=== PATIENT | female | born 1950 | race Caucasian/White ===

== ENCOUNTER 2019-05-08 10:08 | Outpatient (CLI) | payer MEDICARE | END 2019-05-08 10:09 | disposition home or self-care (01) | LOC: SC 10:08 | PROVIDERS: ATTEND Internal Medicine Pulmonary Disease | DX: G47.33 Obstructive sleep apnea (adult) (pediatric) (principal) | CPT/HCPCS: 99203; G0463; 99212 ==

== ENCOUNTER 2019-06-03 19:26 | Outpatient (CLI) | payer MEDICARE | END 2019-06-03 19:27 | disposition home or self-care (01) | LOC: SC 19:26 | PROVIDERS: ATTEND Internal Medicine Pulmonary Disease | DX: G47.33 Obstructive sleep apnea (adult) (pediatric) (principal) | CPT/HCPCS: 95810 ==

== ENCOUNTER 2019-06-21 10:04 | Outpatient (CLI) | payer MEDICARE ==
[2019-06-21 11:24] VITALS: BP 118/60
--- NOTE | 2019-06-21 11:24 | SLEEP CARE CONSULTATION ---
Information from patient questionnaire entered by Diana Tyler. I have reviewed and concur with the information entered by Diana Tyler. This document represents the service I personally performed and the decisions made by me, Laquita Ortiz RN, MSN, FIELD GEOLOGIST. - History of Present Illness 1. HENNA CARTER returns for follow up of the recently performed polysomnography. The patient was informed of the following polysomnography findings. The quality of the study is good. The patient had reduced sleep efficiency due to sleep onset insomnia and a prolonged awakening in the middle of the night. Despite moderate sleep fragmentation, the sleep architecture was relatively normal. Respiratory monitoring showed moderate obstructive sleep apnea-hypopnea (AHI = 15.9) associated with frequent arousals, oxyhemoglobin desaturation and moderate hypoxia (vida oxygen saturation of 70%). Baseline oxygen saturation was low normal at 91%. The respiratory events occurred mainly during REM sleep. The patient only slept supine during this study (supine AHI = 15.9; non-supine = 0.00). Snore was light to moderate in intensity. There was no significant periodic leg movement of sleep. Cardiac rhythm was normal sinus rhythm without significant arrhythmia. No abnormal behavior (parasomnia) observed during the night I explained the pathophysiology behind obstructive sleep apnea. We then spent quite a bit of time discussing different treatment options. For mild obstructive sleep apnea, surgery and oral appliance are alternatives to nasal CPAP therapy but in moderate or severe cases, nasal CPAP is the most effective and reliable treatment. I reviewed the impact of weight changes on sleep apnea and strongly recommended losing weight. I answered questions about CPAP equipment and masks as well. 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 I also advised her to discuss with her PCP and emphasized need of treatment due to hypoxia with rationale discussed. Patient counseled not drink alcohol less than 4 hours before bedtime as it can increase snoring and apnea. Patient does not drink alcohol. Patient was cautioned about risks of drowsy driving until sleepiness symptoms resolve. Patient denies drowsy driving. AAS patient education on snoring and sleep apnea given and reviewed. Initial [place] Sleepiness Scale score: 4 Current [place] Sleepiness Scale score: 5 - Allergies/Medications Medication List Medication Name (generic/name brand) Strength & Dosage Lisinopril 20mg tab one daily Amlodipine Besylate 10mg tab one daily Morphine Sulfate ER 15mg tab one every 12 hours Cymbalta (Duloxetine HCI) 60mg cap one daily Ipratropium-Albuterol 0.5-2.5 mg/3ml One vial via nebulizer four times daily Advair HFA 230-21 mcg/act Two puffs twice daily Albuterol Sulfate 0.083% Solution One vial [id number] as needed for asthma Gabapentin 400mg cap 3 three times daily Atorvastatin Calcium 40mg tab one daily ProAir HFA 108 (90 base) mcg/act Two puffs [id number] as needed Rabeprazole Sodium 20mg tab one daily as needed Senna 8.6mg tab one twice daily before meals Polyethylene Glycol Powder 1450 One packet diluted daily as needed Docusate Sodium 250mg cap one twice daily Sofy Allergy 180mg tab one daily Allergy List Aspirin Ibuprofen Cephalexin No known drug allergies: Yes (aspirin is an allergy but has been desensitized, uses bid. ibuprofen, cepha) Allergies and home medications reviewed: Yes - Review of Systems Review of systems same as previous: Yes Cardiovascular: reports: high blood pressure, leg or foot swelling, have to sleep sitting up Respiratory: reports: shortness of breath, wheeze Gastrointestinal: reports: heartburn, difficulty swallowing Neurological: reports: head trauma Psychiatric: reports: anxiety, claustrophobia Ear/Nose/Throat: reports: nasal congestion, sinus problems, dry mouth/throat, tonsillectomy, wisdom teeth removed Endocrine: reports: too hot or cold Musculoskeletal: reports: joint pain, neck pain, back pain, joint swelling, muscle pain or cramping Immunologic: reports: sneezing, allergies to food or environment - Physical Exam Blood Pressure: 118/60 Cuff size: long Heart Rate: 86 O2 Saturation: 97 Height: 5 ft 4.5 in Weight (kg): 83.28 kg Body Mass Index: 31.0 BMI Classification: Class 1 - Impression 1. Obstructive Sleep Apnea-Hypopnea Syndrome, moderate, with lowest oxygen saturation of 70%. Obviously this is the cause of the patients symptoms of unrefreshed sleep, and fatigue. Positive pressure therapy could benefit her hypertension and COPD. She voiced concern about starting CPAP due clautrophobia with mask last CPAP use in 2011, past sinus surgery at which is well controlled now and worries about the germs that may be more prevelant with use of CPAP / humidifier. I showed her a NIH study completed in 2016 that showed no significant increase in respiratory infections with use of CPAP with or without humidifier. I also discussed improvement of equipment both in CPAP device and mask interfaces. 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 I also advised her to discuss with her PCP. With moderate hypoxia, I emphasized need for treatment. Due to her past difficulty with CPAP, a titration study may be b est implementation if she chose to use. She will contact this office with choice of treatment. I advised her to contact office within a month and discussed how most insurances want implementation of treatment within 6 months of diagnosis. - Plan * Contact this office with choice of care after discussing treatment options with her various specialists and PCP. * If choses to start CPAP - schedule manual titration study * Attempt to lose weight. * Avoid alcohol consumption near bedtime. * The patient is again cautioned about driving until sleepiness completely resolves. Addendum: 06/26/19I conferred with Dr. Urbano due to patient wanting to go back on oxygen only and wanting to speak with her providers as noted above. He agreed with current study findings that CPAP is best method of treatment.
== END 2019-06-21 10:05 | disposition home or self-care (01) ==
LOC: SC 10:04
PROVIDERS: ATTEND Nurse Practitioner Family
DX: G47.33 Obstructive sleep apnea (adult) (pediatric) (principal); R09.02 Hypoxemia
CPT/HCPCS: 99215; G0463; 99212

== ENCOUNTER 2019-08-19 20:13 | Outpatient (CLI) | payer MEDICARE | END 2019-08-19 20:14 | disposition home or self-care (01) | LOC: SC 20:13 | PROVIDERS: ATTEND Internal Medicine Pulmonary Disease | DX: G47.33 Obstructive sleep apnea (adult) (pediatric) (principal) | CPT/HCPCS: 95811 ==

== ENCOUNTER 2019-09-26 13:47 | Outpatient (CLI) | payer MEDICARE ==
--- NOTE | 2019-09-26 15:18 | SLEEP CARE CONSULTATION ---
Information from patient questionnaire entered by Arlene Peguero. I have reviewed and concur with the information entered by Arlene Peguero. This document represents the service I personally performed and the decisions made by me, Scooter Urbano MD, [facility]. History of Present Illness Initial [place] Sleepiness Scale score: 4 Current [place] Sleepiness Scale score: 4 Additional HPI information: HPI: Ms. Baca returns for follow up of the sleep study (a manual CPAP titration study) she had on 08/19/19. The study showed that CPAP was initiated at 4 cmH2O and titrated up to CPAP at 9 cmH2O. CPAP at 8 cmH2O appeared to be optimal (AHI of 1.5 per hour on the pressure). There was supine REM sleep on the pressure. Oxygen saturation was minimally low. Lower CPAP settings appeared adequate as well. The patient tolerated positive airway pressure therapy very well. The patients sleep efficiency was normal. The sleep architecture was relatively normal considering the first-night effect. There was no significant periodic leg movement of sleep. Cardiac rhythm was normal sinus rhythm without significant arrhythmia. No abnormal behavior (parasomnia) observed during the night. The patient was informed of these findings. The patient tried CPAP 10 years ago but could not tolerate. She said this time she felt significantly better after just one night of using CPAP here. Allergies and Home Medications Drug allergies reviewed: Yes Home medication list reviewed: Yes Physical Exam Weight: 180 lb Impression and Plan IMPRESSION: 1. Obstructive Sleep Apnea-Hypopnea Syndrome, moderate, adequately controlled with CPAP of 8 cmH2O. Based on the titration study, I will prescribe her an autoCPAP set between 5 9 cmH2O. I anticipate good treatment compliance this time around. PLAN: 1. Prescription made for an autoCPAP, heated humidifier, and related supplies. 2. Attempt to lose weight. 3. Return for follow up after one month on the new machine. I spent 100% of this 20 minute visit face to face with the patient with greater than 50% of this was spent time counseling the patient and coordination of care.
== END 2019-09-26 13:48 | disposition home or self-care (01) ==
LOC: SC 13:47
PROVIDERS: ATTEND Internal Medicine Pulmonary Disease
DX: G47.33 Obstructive sleep apnea (adult) (pediatric) (principal)
CPT/HCPCS: 99213; G0463; 99212

== ENCOUNTER 2020-01-09 10:31 | Outpatient (CLI) | payer MEDICARE ==
--- NOTE | 2020-01-09 13:28 | SLEEP CARE CONSULTATION ---
Information from patient questionnaire entered by Arlene Peguero. I have reviewed and concur with the information entered by Arlene Peguero. This document represents the service I personally performed and the decisions made by me, Scooter Urbano MD, [facility]. History of Present Illness Previous diagnosis: Moderate, Obstructive Sleep Apnea-Hypopnea Syndrome AHI: 15.9 Reason for follow up: three month (for alternative treatment option) Prior sleep studies: Yes HPI additional information: HPI: Ms. Baca returned today for follow up of nasal CPAP therapy. She was diagnosed to have moderate obstructive sleep apnea-hypopnea syndrome (AHI was 15.6). The patient was prescribed a CPAP which she tried to use for a little bit. She says she has a lung disorder where her air sacs would collapse and she thinks the CPAP will make it worse. 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 She has since returned the device to the durable medical supplier. In the past she has looked into the oral appliance therapy with Dr. Rodriguez. She normally sleeps partially sitting up at home. She has lost some weight. Subjective Initial [place] Sleepiness Scale score: 4 Current [place] Sleepiness Scale score: 3 Allergies and Home Medications Drug allergies reviewed: Yes Home medication list reviewed: Yes Review of Systems Review of systems same as previous: Yes Physical Exam Height: 5 ft 4.5 in Weight: 175 lb Body Mass Index: 29.5 BMI Classification: Overweight Impression and Plan IMPRESSION: 1. Obstructive Sleep Apnea-Hypopnea Syndrome, moderate, with the patient choosing not to use CPAP. Despite my reassurance that CPAP has never infected anybody nor cause any harm, she still does not want to use it. Oral appliance therapy would cost her a lot of money out of pocket. We talked a little bit about Inspire therapy (upper airway stimulation) which she is not interested. She has lost some weight which is encouraging. PLAN: 1. Continue with weight loss 2. Discontinue CPAP. 3. Return for follow up on as needed basis, especially if she gains weight. I spent 100% of this visit face to face with the patient with greater than 50% of this was spent time counseling the patient and coordination of care.
== END 2020-01-09 10:32 | disposition home or self-care (01) ==
LOC: SC 10:31
PROVIDERS: ATTEND Internal Medicine Pulmonary Disease
DX: G47.33 Obstructive sleep apnea (adult) (pediatric) (principal); E66.3 Overweight; Z68.29 Body mass index [BMI] 29.0-29.9, adult
CPT/HCPCS: 99213; G0463; 99212

== ENCOUNTER 2021-06-05 11:40 | Outpatient (CLI) | payer MEDICARE ==
--- NOTE | 2021-06-05 13:28 | XRAY Report ---
PROCEDURE: Shoulder 3 View RT INDICATIONS: PAIN IN RIGHT SHOULER TECHNIQUE: 4 views of the shoulder were acquired. COMPARISON: 05/07/2021 from [facility]. FINDINGS: Bones: Findings suggest a subtle healing greater tuberosity fracture and possibly a nondisplaced heal ing fracture of the humeral neck. No suspicious bony lesions. Visualized ribs appear intact. Soft tissues: No suspicious soft tissue calcifications. IMPRESSION: Findings suggest a subtle healing greater tuberosity fracture and possibly a nondisplace d healing fracture of the humeral neck. Reviewed by: Massimo Chow MD on 06/05/2021 1:27 PM PDT Approved by: Massimo Chow MD on 06/05/2021 1:27 PM PDT Station ID: [id number]
== END 2021-06-05 23:59 | disposition home or self-care (01) ==
LOC: DI.N 11:40
PROVIDERS: ATTEND Orthopaedic Surgery
DX: R93.6 Abnormal findings on diagnostic imaging of limbs (principal)

== ENCOUNTER 2021-07-22 08:00 | Outpatient (CLI) | payer MEDICARE ==
--- NOTE | 2021-07-22 13:39 | XRAY Report ---
PROCEDURE: Shoulder 3 View RT INDICATIONS: 2-PART NONDISPLACED FX OF SURGICAL NECK OF R HUMERUS TECHNIQUE: 3 views of the shoulder were acquired. COMPARISON: Shoulder x-ray 06/05/2021 FINDINGS: Bones: There is a minimally displaced right humeral neck fracture with minimal interval healing. As p reviously noted, there are suspected fracture at the greater tuberosity. There is slight inferior sub luxation at the glenohumeral joint space, unchanged.. No suspicious bony lesions. Visualized ribs a ppear intact. Soft tissues: No suspicious soft tissue calcifications. IMPRESSION: Humeral neck and likely greater tuberosity fracture demonstrating minimal interval heali ng with stable alignment. Reviewed by: Genesis Craft MD on 07/22/2021 1:38 PM PDT Approved by: Genesis Craft MD on 07/22/2021 1:38 PM PDT Station ID: [id number]
== END 2021-07-22 23:59 | disposition home or self-care (01) ==
LOC: DI.N 08:00
PROVIDERS: ATTEND Orthopaedic Surgery
DX: S42.224D 2-part nondisplaced fracture of surgical neck of right humerus, subsequent encounter for fracture with routine healing (principal)

== ENCOUNTER 2021-08-15 09:41 | Outpatient (CLI) | payer MEDICARE ==
--- NOTE | 2021-08-15 16:44 | DEXA Report ---
PROCEDURE: Dexa Spine and/or Hip INDICATIONS: OSTEOPOROSIS SCREENING TECHNIQUE: Dual energy x-ray absorptiometry (DXA) was performed on a Novadiol System. Regions measur ed are the AP Spine, femoral neck, and if needed forearm. COMPARISON: None. FINDINGS: Lumbar Spine: Bone Mineral Density 0.932 g/cm/cm,T score -2.1, osteopenia Left Hip: Bone Mineral Density 0.779 g/cm/cm,T score -1.7, osteopenia Left Femoral Neck: Bone Mineral Density 0.793 g/cm/cm, T score -1.8, osteopenia (T score greater or equal to -1.0: NORMAL) (T score from -1.1 to -2.4: OSTEOPENIA) (T score less than or equal to -2.5 to: OSTEOPOROSIS) Impression: Osteopenia. Patients with diagnosis of osteoporosis or osteopenia should have regular bone mineral density assess ment. For those eligible for Medicare, routine testing is allowed once every 2 years. Testing frequ ency can be increased for patients who have rapidly progressing disease or for those who are receivin g medical therapy to restore bone mass. Reviewed by: Moni Pittman MD, PhD on 08/15/2021 4:43 PM PDT Approved by: Moni Pittman MD, PhD on 08/15/2021 4:43 PM PDT Station ID: [id number]
== END 2021-08-15 09:42 | disposition home or self-care (01) ==
LOC: DI 09:41
PROVIDERS: ATTEND Physician Assistant
DX: Z13.820 Encounter for screening for osteoporosis (principal); M85.89 Other specified disorders of bone density and structure, multiple sites

== ENCOUNTER 2023-02-15 10:44 | Outpatient (CLI) | payer MEDICARE ==
--- NOTE | 2023-02-15 13:20 | XRAY Report ---
PROCEDURE: Thoracic Spine 2 View INDICATIONS: BACK PAIN' TECHNIQUE: 2 views of the thoracic spine were acquired. COMPARISON: CT 05/07/2021 FINDINGS: Bones: There is a chronic appearing compression deformity of the lower and mid vertebral bodies, susp ected at level T12 and T7. No endplate retropulsion. No suspicious bony lesions. 12 pairs of ribs ar e noted, and appear intact where visualized. Soft tissues: No paravertebral stripe thickening. IMPRESSION: Chronic appearing compression deformities of T7 and T12, without endplate retropulsion. Note: Numberi ng may be off due to rotation and appearance on AP films. Reviewed by: Young Trejo on 02/15/2023 1:19 PM PDT Approved by: Young Trejo on 02/15/2023 1:19 PM PDT Station ID: [id number]
== END 2023-02-15 10:45 | disposition home or self-care (01) ==
LOC: DI 10:44
PROVIDERS: ATTEND Student in an Organized Health Care Education/Training Program
DX: M54.9 Dorsalgia, unspecified (principal)